=== PATIENT | female | born 1990 | race Two or more races ===

== ENCOUNTER 2018-06-28 09:17 | Outpatient (CLI) | payer OTHER | END 2018-06-28 15:02 | disposition home or self-care (01) | LOC: SONOGRAMA 09:17 | DX: R10.2 Pelvic and perineal pain (principal); N94.89 Other specified conditions associated with female genital organs and menstrual cycle; N91.2 Amenorrhea, unspecified ==

== ENCOUNTER 2018-08-30 18:46 | Emergency (ER) | payer OTHER ==
[~2018-08-30] VITALS: Ht 152.4 cm; Wt 48.1 kg
[2018-08-30] MEDS ORDERED: PRENATAL + DHA1 EAC1 (18:53)
== END 2018-08-30 21:13 | disposition home or self-care (01) ==
LOC: ER 18:46
DX: J31.2 Chronic pharyngitis (principal)

== ENCOUNTER 2018-11-15 01:19 | Outpatient (CLI) | payer OTHER ==
[~2018-11-15 01:19] MED LIST: PRENATAL + DHA1 EAC1
== END 2018-11-15 15:02 | disposition home or self-care (01) ==
LOC: OBS/DEL 01:19
DX: O26.893 Other specified pregnancy related conditions, third trimester (principal); E86.0 Dehydration; A08.39 Other viral enteritis; Z34.83 Encounter for supervision of other normal pregnancy, third trimester

== ENCOUNTER 2018-12-15 14:55 | Outpatient (CLI) | payer OTHER | END 2018-12-15 19:17 | disposition home or self-care (01) | LOC: OBS/DEL 14:55 → PRENATAL 14:55 → OBS/DEL 14:56 | DX: O26.893 Other specified pregnancy related conditions, third trimester (principal); Z04.3 Encounter for examination and observation following other accident; Z34.03 Encounter for supervision of normal first pregnancy, third trimester; W18.39XA Other fall on same level, initial encounter; Y93.89 Activity, other specified; Y92.89 Other specified places as the place of occurrence of the external cause; Y99.8 Other external cause status ==

== ENCOUNTER 2019-01-23 14:44 | Outpatient (CLI) | payer OTHER ==
[2019-01-23] MEDS ORDERED: TILENOR (16:12)
[2019-01-23] MEDS ORDERED: ALBUTEROL (16:12)
[2019-01-23] MEDS ORDERED: PULMICOR (16:13)
== END 2019-01-23 15:20 | disposition home or self-care (01) ==
LOC: NST 14:44
DX: Z34.83 Encounter for supervision of other normal pregnancy, third trimester (principal)

== ENCOUNTER 2019-01-23 15:48 | Emergency (ER) | payer OTHER ==
[~2019-01-23] VITALS: Ht 152.4 cm; Wt 57.6 kg
[2019-01-23] MEDS ORDERED: ALBUTEROL (16:12)
[2019-01-23] MEDS ORDERED: TILENOR (16:12)
[2019-01-23] MEDS ORDERED: PULMICOR (16:13)
== END 2019-01-23 21:57 | disposition home or self-care (01) ==
LOC: ER 15:48
DX: O99.513 Diseases of the respiratory system complicating pregnancy, third trimester (principal); J40 Bronchitis, not specified as acute or chronic

== ENCOUNTER 2019-02-21 14:19 | Inpatient (IN) | payer OTHER ==
[~2019-02-21] VITALS: Ht 152.4 cm; Wt 59.0 kg
[~2019-02-21 14:19] MED LIST changes: +ALBUTEROL; +PULMICOR; +TILENOR
[2019-02-21] MEDS ORDERED: ACYCLOVIR200 MG PO (16:36)
== END 2019-02-23 12:57 | disposition home or self-care (01) | DRG 807 ==
LOC: OB/GYN 14:19 → LDR 14:19 → OB/GYN 02-22 00:05
PROVIDERS: ADMIT Obstetrics & Gynecology
PROC: 10E0XZZ Delivery of Products of Conception, External Approach (ICD-10-PCS; principal; 2019-02-21)
PROC: 3E033VJ Introduction of Other Hormone into Peripheral Vein, Percutaneous Approach (ICD-10-PCS; 2019-02-21)
PROC: 4A1HXCZ Monitoring of Products of Conception, Cardiac Rate, External Approach (ICD-10-PCS; 2019-02-21)
DX: O80 Encounter for full-term uncomplicated delivery (principal); Z37.0 Single live birth; Z3A.39 39 weeks gestation of pregnancy

== ENCOUNTER 2022-09-19 19:47 | Emergency (ER) | payer OTHER ==
[~2022-09-19] VITALS: Ht 152.4 cm; Wt 46.3 kg
[~2022-09-19 19:47] MED LIST changes: +ACYCLOVIR200 MG PO
== END 2022-09-19 21:59 | disposition home or self-care (01) ==
LOC: ER 19:47
DX: R42 Dizziness and giddiness (principal); B34.9 Viral infection, unspecified; Z20.822 Contact with and (suspected) exposure to COVID-19

== ENCOUNTER 2024-06-13 13:59 | Emergency (ER) | payer OTHER ==
[~2024-06-13] VITALS: Ht 152.4 cm; Wt 45.8 kg
[~2024-06-13 13:59] MED LIST changes: +ADVIL DUAL ACT1 EACH PO
== END 2024-06-13 18:45 | disposition home or self-care (01) ==
LOC: ER 14:01
DX: J10.1 Influenza due to other identified influenza virus with other respiratory manifestations (principal); Z20.822 Contact with and (suspected) exposure to COVID-19